=== PATIENT | male | born 1995 | race Caucasian/White ===

== ENCOUNTER 2017-06-11 07:28 | Emergency (ER) | payer BC, OTHER, SELFPAY ==
[~2017-06-11] VITALS: Ht 157.5 cm; Wt 51.7 kg
[~2017-06-11 07:28] MED LIST: Loperamide2 MG PO
[2017-06-11] MEDS ORDERED: Hydrocodone-Ap1 EA23 PO (08:21)
[2017-06-11] MEDS ORDERED: Entocort EC 3 mg3 MG (08:21)
[2017-06-11 08:22] LABS: BASOPHILS ABSOLUTE AUTO 0.03 K/mm3 (0.00-0.23); BASOPHILS PERCENT AUTO 1 % (0-2); EOSINOPHILS ABSOLUTE AUTO 0.17 K/mm3 (0.00-0.68); EOSINOPHILS PERCENT AUTO 3 % (0-6); Hemoglobin 12.6 g/dL (13.5-17.5); IMMATURE GRAN ABSOLUTE AUTO 0.01 K/mm3 (0.00-0.10); IMMATURE GRAN PERCENT AUTO 0 % (0-1); LYMPHOCYTES ABSOLUTE AUTO 1.55 K/mm3 (0.84-5.20); LYMPHOCYTES PERCENT AUTO 24 % (21-46); MONOCYTES ABSOLUTE AUTO 0.67 K/mm3 (0.16-1.47); MONOCYTES PERCENT AUTO 10 % (4-13); Mean Corpuscular HGB Conc 33.2 g/dL (31.5-36.5); Mean Corpuscular Volume 84 fL (80-100); Mean Platelet Volume 10.7 fL (9.1-12.4); NEUTROPHILS ABSOLUTE AUTO 4.17 K/mm3 (1.96-9.15); NEUTROPHILS PERCENT AUTO 63 % (41-73); Platelet Count 230 K/mm3 (150-400); RDW Coefficient Variation 12.8 % (11.7-14.2); RDW Standard Deviation 39.6 fL (35.1-46.3)
[2017-06-11 08:32] LABS: Alanine Aminotransfer (ALT/SGP 34 U/L (12-78); Albumin, Blood 3.7 g/dL (3.4-5.0); Alk Phos 83 U/L (50-136); Amylase, Blood 40 U/L (25-115); Anion Gap 6 mmol/L (6-16); Aspartate Aminotrans (AST/SGOT 21 U/L (12-37); Bilirubin, Total 0.4 mg/dL (0.1-1.0); Blood Urea Nitrogen 13 mg/dL (8-24); Bun/Creatinine Ratio 16.8 (12.0-20.0); CO2, Blood 27 mmol/L (21-32); Calcium, Blood 8.5 mg/dL (8.5-10.1); Chloride, Blood 108 mmol/L (98-108); Creatinine, Blood 0.78 mg/dL (0.60-1.20); Globulin, Blood 3.6 g/dL (2.2-4.0); Glomerular Filtration Rate >60 (60-); Glucose, Blood 89 mg/dL (70-99); Potassium, Blood 3.9 mmol/L (3.5-5.5); Sodium, Blood 141 mmol/L (136-145); Total Protein, Blood 7.3 g/dL (6.4-8.2)
[2017-06-11] MEDS ORDERED: MESALAMINE800 MG PO (09:24)
[2017-06-11] MEDS ORDERED: BUDESONIDE EC3 MG PO (09:24)
[2017-06-11] MEDS ORDERED: Prednisone20 MG PO (10:49)
[2018-01-13] MEDS ORDERED: ACET325 PO (08:44)
[2018-01-13] MEDS ORDERED: DIPH50 PO (08:46)
== END 2017-06-11 11:07 | disposition home or self-care (01) ==
LOC: ER 07:28
PROVIDERS: Internal Medicine
DX: K50.90 Crohn's disease, unspecified, without complications (principal); Z88.1 Allergy status to other antibiotic agents
CPT/HCPCS: 36415; 80053; 82150; 85025; 96374; 99283; J2930

== ENCOUNTER 2017-06-24 00:31 | Day surgery (SDC) | payer BC, OTHER, SELFPAY ==
[~2017-06-24 00:31] MED LIST changes: +BUDESONIDE EC3 MG PO; +Entocort EC 3 mg3 MG; +Hydrocodone-Ap1 EA23 PO; +MESALAMINE800 MG PO; +Prednisone20 MG PO
[2017-06-24] MEDS ORDERED: TRAM50 PO (15:05)
[2017-06-24] MEDS ORDERED: IRON160 M1 PO (15:11)
[2017-06-24] MEDS ORDERED: MULTI-VITAMIN1 EAC1 PO (15:12)
[2017-06-24] MEDS ORDERED: Fruity C250 MG PO (15:13)
[2018-01-13] MEDS ORDERED: ACET325 PO (08:44)
[2018-01-13] MEDS ORDERED: DIPH50 PO (08:46)
== END 2017-06-24 17:36 | disposition home or self-care (01) ==
LOC: ATC 00:31
DX: K50.00 Crohn's disease of small intestine without complications (principal)
CPT/HCPCS: 96413; 96415; J1200; J1745; J2930; J7050; Q0163

== ENCOUNTER 2017-07-08 00:21 | Day surgery (SDC) | payer OTHER ==
[~2017-07-08 00:21] MED LIST changes: +Fruity C250 MG PO; +IRON160 M1 PO; +MULTI-VITAMIN1 EAC1 PO; +TRAM50 PO
[2017-07-08] MEDS ORDERED: Remicade100 MG IV (14:35)
== END 2017-07-08 16:50 | disposition home or self-care (01) ==
LOC: ATC 00:21
DX: K50.00 Crohn's disease of small intestine without complications (principal); Z87.891 Personal history of nicotine dependence
CPT/HCPCS: 96413; 96415; J1745; J7050; Q0163

== ENCOUNTER 2017-08-05 00:09 | Day surgery (SDC) | payer BC, OTHER ==
[~2017-08-05 00:09] MED LIST changes: +Remicade100 MG IV
== END 2017-08-05 11:35 | disposition home or self-care (01) ==
LOC: ATC 00:09
DX: K50.00 Crohn's disease of small intestine without complications (principal)
CPT/HCPCS: 96413; 96415; J1745; J2930; J7050; Q0163

== ENCOUNTER 2017-09-16 00:13 | Day surgery (SDC) | payer BC, OTHER ==
[2017-09-16] MEDS ORDERED: LORA.5 PO (14:53)
== END 2017-09-16 17:01 | disposition home or self-care (01) ==
LOC: ATC 00:13
DX: K50.00 Crohn's disease of small intestine without complications (principal); Z79.899 Other long term (current) drug therapy
CPT/HCPCS: 96413; 96415; J1745; J7050; Q0163

== ENCOUNTER 2018-05-05 07:15 | Day surgery (SDC) | payer OTHER ==
[~2018-05-05 07:15] MED LIST changes: +ACET325 PO; +DIPH50 PO; +LORA.5 PO
== END 2018-05-05 10:45 | disposition home or self-care (01) ==
LOC: ATC 07:15
DX: K50.90 Crohn's disease, unspecified, without complications (principal)
CPT/HCPCS: 96413; 96415; J1745; J7050; Q0163

== ENCOUNTER 2018-09-15 02:13 | Day surgery (SDC) | payer OTHER, SELFPAY | END 2018-09-15 16:48 | disposition home or self-care (01) | LOC: ATC 02:13 | DX: K50.00 Crohn's disease of small intestine without complications (principal) | CPT/HCPCS: 96413; 96415; A9270; J1745; J7050; Q0163 ==

== ENCOUNTER 2018-10-27 02:29 | Day surgery (SDC) | payer OTHER | END 2018-10-27 16:16 | disposition home or self-care (01) | LOC: ATC 02:29 | DX: K50.00 Crohn's disease of small intestine without complications (principal); Z79.899 Other long term (current) drug therapy; Z87.891 Personal history of nicotine dependence | CPT/HCPCS: 96413; 96415; A9270; J1745; J7050; Q0163 ==

== ENCOUNTER 2018-12-08 02:20 | Day surgery (SDC) | payer OTHER | END 2018-12-08 16:29 | disposition home or self-care (01) | LOC: ATC 02:20 | DX: K50.00 Crohn's disease of small intestine without complications (principal); Z79.899 Other long term (current) drug therapy; Z88.1 Allergy status to other antibiotic agents; Z87.891 Personal history of nicotine dependence | CPT/HCPCS: 96413; 96415; A9270; J1745; J7050; Q0163 ==

== ENCOUNTER 2019-01-19 01:02 | Day surgery (SDC) | payer OTHER | END 2019-01-19 11:09 | disposition home or self-care (01) | LOC: ATC 01:02 | DX: K50.00 Crohn's disease of small intestine without complications (principal); Z88.1 Allergy status to other antibiotic agents; Z87.891 Personal history of nicotine dependence | CPT/HCPCS: 96413; 96415; A9270; J1745; J7050; Q0163 ==

== ENCOUNTER → 2020-01-03 | Outpatient (CLI) | payer OTHER ==
[2020-01-03 18:08] LABS: BASOPHILS ABSOLUTE AUTO 0.05 K/mm3 (0.00-0.23); BASOPHILS PERCENT AUTO 1 % (0-2); EOSINOPHILS ABSOLUTE AUTO 0.19 K/mm3 (0.00-0.68); EOSINOPHILS PERCENT AUTO 3 % (0-6); Hematocrit 46.4 % (37.0-53.0); Hemoglobin 15.8 g/dL (13.5-17.5); IMMATURE GRAN ABSOLUTE AUTO 0.02 K/mm3 (0.00-0.10); IMMATURE GRAN PERCENT AUTO 0 % (0-1); LYMPHOCYTES ABSOLUTE AUTO 2.48 K/mm3 (0.84-5.20); LYMPHOCYTES PERCENT AUTO 33 % (21-46); MONOCYTES ABSOLUTE AUTO 0.67 K/mm3 (0.16-1.47); MONOCYTES PERCENT AUTO 9 % (4-13); Mean Corpuscular HGB 29.2 pg (26.0-34.0); Mean Corpuscular HGB Conc 34.1 g/dL (31.5-36.5); Mean Corpuscular Volume 86 fL (80-100); Mean Platelet Volume 11.6 fL (9.1-12.4); NEUTROPHILS ABSOLUTE AUTO 4.08 K/mm3 (1.96-9.15); NEUTROPHILS PERCENT AUTO 55 % (41-73); Platelet Count 244 K/mm3 (150-400); RDW Coefficient Variation 12.4 % (11.7-14.2); RDW Standard Deviation 38.3 fL (35.1-46.3); Red Blood Cell Count 5.41 M/mm3 (4.30-5.90); White Blood Cell Count 7.49 K/mm3 (4.00-11.30)
== END | disposition home or self-care (01) ==
LOC: LAB SHORT 17:51 → LAB 17:51
PROVIDERS: Physician Assistant
DX: K50.918 Crohn's disease, unspecified, with other complication (principal); E16.1 Other hypoglycemia; R11.0 Nausea; E55.9 Vitamin D deficiency, unspecified; D64.9 Anemia, unspecified
CPT/HCPCS: 85025

== ENCOUNTER → 2020-12-31 | Outpatient (CLI) | payer OTHER | END | disposition home or self-care (01) | LOC: LAB SHORT 08:47 → LAB 08:47 | DX: J02.9 Acute pharyngitis, unspecified (principal) | CPT/HCPCS: 87081 ==